=== PATIENT | male | born 1975 | race Caucasian/White ===

== ENCOUNTER 2020-06-09 11:50 | Day surgery (SDC) | payer OTHER ==
[2020-06-07 17:21] VITALS: BMI 36.8
[~2020-06-09 11:50] MED LIST: ACETAMINOPHEN TAB 500 MG TAB PO ONE; HEPARIN SODIUM,PORCINE 5,000 UNIT/ML 1 ML VIAL SQ ONE; LACTATED RINGERS 1,000 ML IV SCH; ceFAZolin 3 GM in SODIUM CHLORIDE 0.9% 100 ML IVPB ONE
[2020-06-09] MEDS ORDERED: LIDOCAINE 1% (10MG/ML) FOR IV START INTRADERMA ONE (12:32)
[2020-06-09] MEDS ORDERED: ONDANSETRON 4 MG/2 ML VIAL ONE (12:33)
[2020-06-09] MEDS ORDERED: ONDANSETRON 4 MG/2 ML VIAL IVP ONE (12:40)
[2020-06-09] MEDS ORDERED: DEXAMETHASONE SOD PHOSPHATE 10 MG/ML 1 ML VIAL IV ONE (12:40)
[2020-06-09] MEDS ORDERED: GLYCOPYRROLATE 0.2 MG/ML 2 ML VIAL ONE (13:13)
[2020-06-09] MEDS ORDERED: fentaNYL (PF) 50 MCG/ML 2 ML AMP ONE (13:13)
[2020-06-09] MEDS ORDERED: MIDAZOLAM 2 MG/2 ML VIAL ONE (13:13)
[2020-06-09] MEDS ORDERED: KETOROLAC 15 MG/ML 1 ML VIAL ONE (13:13)
[2020-06-09] MEDS ORDERED: ROCURONIUM 10 MG/ML (5 ML VIAL) IV ONE (13:13)
[2020-06-09] MEDS ORDERED: NEOSTIGMINE 1 MG/ML 10 ML VIAL ONE (13:13)
[2020-06-09] MEDS ORDERED: SUCCINYLCHOLINE CHLORIDE 100 MG/5 ML SYR IV ONE (13:13)
[2020-06-09] MEDS ORDERED: PROPOFOL 10 MG/ML 20 ML VIAL IV ONE (13:13)
[2020-06-09] MEDS ORDERED: LIDOCAINE 1% INJ 10MG/ML (20 ML MDV) ONE (13:13)
[2020-06-09] MEDS ORDERED: KETAMINE 10 MG/ML 20 ML VIAL ONE (13:13)
[2020-06-09] MEDS ORDERED: BUPIVACAINE (PF) 0.25% 30 ML VIAL SQ ONE ×2 (13:38→15:15)
[2020-06-09] MEDS ORDERED: LACTATED RINGERS 1,000 ML IV ONE (14:10)
[2020-06-09 15:38] VITALS: TEMP 97.1
[2020-06-09] MEDS ORDERED: ONDANSETRON 4 MG/2 ML VIAL IVP PRN (15:38)
--- NOTE | 2020-06-09 15:44 | P.OP ---
Date of Procedure: 06/09/20 Procedure(s) Performed: PREOPERATIVE DIAGNOSIS: Incarcerated left scrotal/inguinal hernia POSTOPERATIVE DIAGNOSIS: Same PROCEDURE: Left incarcerated inguinal hernia repair with mesh, partial omentectomy SURGEON: Bonnie EBL: 50 mL ANESTHESIA: General COMPLICATIONS: None OPERATIVE PROCEDURE: Patient was placed in the operating table in the supine position and placed under general anesthesia. The abdomen and genitalia was prepped and draped sterilely. An oblique incision was made in the [] groin. Dissection down through the subcutaneous tissues took place using electrocautery. The external oblique fascia was incised using a scalpel. This opening was lengthened using the Metzenbaum scissors. The spermatic cord was encircled with a Leo drain. The hernia sac was quite large. We were able to dissect the hernia sac away from the surrounding cord structures. Once we're able to do that the hernia sac was brought into our field of view from the scrotum using blunt dissection. The sac was entered. A large line of serous fluid was evacuated. The patient had a large amount of the omentum that was incarcerated in the hernia sac and densely adherent to the wall of the hernia sac as well. A partial omentectomy took place using interrupted 0 silk sutures and the LigaSure device. The hernia sac was then dissected back to the internal inguinal ring where it was ligated using 3 separate #5 Ethibond stick tie sutures. An additional running Ethibond stitch was used along the cut edge of the hernia sac as well. No bleeding was seen. A lipoma of the cord was excised as well. The spermatic cord structures were again evaluated for bleeding and none was seen. A 3" x 6" Prolene mesh was cut to fit on the exposed fascia. This was sutured to the pubic tubercle the folding edge of the inguinal ligament and the conjoined tendon. A slit was created in the mesh and the mesh was wrapped around the spermatic cord and sutured back to itself. The external oblique was then reapproximated using a running 2-0 Vicryl suture. The subcutaneous tissues were reapproximated using a 3-0 Vicryl sutures. The skin was closed using 4-0 Monocryl sutures. Skin glue and sterile dressings were then applied. DISPOSITION: Stable to recovery room
[2020-06-09 17:04] VITALS: BP 151/98; PULSE 58; RESP 16
[2020-06-09] MEDS ORDERED: ACETAMINOPHEN TAB 325 MG TAB PO SCH (18:00)
[2020-06-09] MEDS ORDERED: IBUPROFEN 600 MG TAB PO SCH (18:39)
== END 2020-06-09 17:23 ==
LOC: OR 11:50
PROVIDERS: ATTEND Surgery
DX: K40.30 Unilateral inguinal hernia, with obstruction, without gangrene, not specified as recurrent (principal)
CPT/HCPCS: 49507; C1781; J2250; J1644; J1100; J2710; J0690; J2405; J2001; J3010; J1885; J0330; J2704; 88305